=== PATIENT | female | born 1965 | race American Indian/Alaskan Native ===

== ENCOUNTER 2021-02-28 21:40 | Emergency (ER) | payer SELFPAY ==
[2021-02-28 23:22] VITALS: BP 131/83
[2021-02-28] MEDS ORDERED: oxyCODONE /ACETAMINOPHEN 5-325MG TAB PO ONE (23:55)
[2021-02-28] MEDS ORDERED: dexAMETHasone 20 MG/5 ML VIAL IM ONE (23:55)
[2021-02-28] MEDS ORDERED: ONDANSETRON 4 MG ODT TAB PO ONE (23:55)
[2021-02-28] MEDS ORDERED: KETOROLAC 60 MG/2 ML INJ IM ONE (23:55)
--- NOTE | 2021-03-01 00:01 | Emergency Department Report ---
ED Back Pain/Injury HPI - General Chief Complaint: Extremity Problem,Nontraumatic Stated Complaint: PAIN IN RIGHT BACK AND HIP Source: patient Limitations: No Limitations - History of Present Illness Initial Comments: Patient is a 55-year-old -[place] female with a history of hypertension, glaucoma, chronic lumbar disc disease, chronic back pain with sciatica and chronic osteoarthritis s/p left TKR who presents to the ED with acute exacerbation of her chronic low back pain and sciatica that began 3 days ago. Patient states that the pain got worse such that she is unable to bear weight on her lower extremities because of worsening radiating low back pain to her lower extremities. Patient states that she has been taking [id number] pain medications with no relief. Patient also states that she tried to ambulate using crutches but has not been able to walk because of worsening low back pain which is constant, persistent, sharp and radiating to the lower extremities bilaterally. Patient denies dysuria, urinary frequency and urgency, fall, heavy lifting, traumatic injury, urinary retention, bowel incontinence, saddle paresthesia, chest pain or shortness of breath, abdominal pain, nausea and vomiting, fever and chills. MD Complaint: back pain (Low back pain that radiates to the lower extremities bilaterally) -: Sudden, days(s) (3) Similar Symptoms Previously: Yes (Chronic low back pain with sciatica) Place: home Radiation: buttocks, left leg, right leg Severity: severe Severity scale (0 -10): 9 Quality: sharp, aching Consistency: constant Improves With: none Worsens With: movement, walking Context: other (Chronic degenerative lumbar disc disease) Associated Symptoms: denies other symptoms, difficulty walking (Due to pain). denies: confusion, weakness, chest pain, cough, difficulty urinating, diaphoresis, incontinence, fever/chills, constipation, headaches, abdominal pain, loss of appetite, malaise, nausea/vomiting, rash, seizure, shortness of breath, syncope, other Treatments Prior to Arrival: NSAIDS, acetaminophen - Related Data Previous Rx's Medication Instructions Recorded Last Taken Type Gabapentin 300 mg PO Q12H PRN #30 capsule 03/01/21 Unknown Rx Ketoprofen 75 mg PO Q8H PRN #30 capsule 03/01/21 Unknown Rx carisoprodoL [Soma] 350 mg PO Q8H PRN #30 tablet 03/01/21 Unknown Rx predniSONE [Deltasone] 60 mg PO QDAY #15 tab 03/01/21 Unknown Rx traMADoL [Ultram] 50 mg PO Q6HR PRN #12 tablet 03/01/21 Unknown Rx Allergies Allergy/AdvReac Type Severity Reaction Status Date / Time No Known Allergies Allergy Unverified 02/28/21 23:14 ED Review of Systems ROS: Stated complaint: PAIN IN RIGHT BACK AND HIP Other details as noted in HPI Constitutional: denies: chills, fever Eyes: denies: eye pain, eye discharge, vision change ENT: denies: ear pain, throat pain Respiratory: denies: cough, shortness of breath, wheezing Cardiovascular: denies: chest pain, palpitations Endocrine: no symptoms reported Gastrointestinal: denies: abdominal pain, nausea, vomiting, diarrhea Genitourinary: denies: urgency, dysuria, discharge Musculoskeletal: back pain (Low back pain), arthralgia (Bilateral lower extremity pain with tingling), myalgia. denies: joint swelling Skin: denies: rash, lesions Neurological: denies: headache, weakness, paresthesias Psychiatric: denies: anxiety, depression Hematological/Lymphatic: denies: easy bleeding, easy bruising ED Past Medical Hx - Past Medical History Previous Medical History?: Yes Hx Hypertension: Yes Hx Heart Attack/AMI: ("enlarged heart") Hx Arthritis: Yes (osteoporosis) Additional medical history: glaucoma - Surgical History Additional Surgical History: 2 L knee replacements - Social History Smoking Status: Never Smoker Substance Use Type: Marijuana - Medications Home Medications: Home Medications Medication Instructions Recorded Confirmed Last Taken Type Gabapentin 300 mg PO Q12H PRN #30 capsule 03/01/21 Unknown Rx Ketoprofen 75 mg PO Q8H PRN #30 capsule 03/01/21 Unknown Rx carisoprodoL [Soma] 350 mg PO Q8H PRN #30 tablet 03/01/21 Unknown Rx predniSONE [Deltasone] 60 mg PO QDAY #15 tab 03/01/21 Unknown Rx traMADoL [Ultram] 50 mg PO Q6HR PRN #12 tablet 03/01/21 Unknown Rx ED Physical Exam - General Limitations: No Limitations General appearance: alert, in no apparent distress - Head Head exam: Present: atraumatic, normocephalic, normal inspection - Eye Eye exam: Present: normal appearance, PERRL, EOMI Pupils: Present: normal accommodation - ENT ENT exam: Present: normal exam, normal orophraynx, mucous membranes moist, TM's normal bilaterally, normal external ear exam - Neck Neck exam: Present: normal inspection, full ROM. Absent: tenderness - Respiratory Respiratory exam: Present: normal lung sounds bilaterally. Absent: respiratory distress, wheezes, rales, rhonchi, stridor, chest wall tenderness, accessory muscle use, prolonged expiratory - Cardiovascular Cardiovascular Exam: Present: regular rate, normal rhythm, normal heart sounds. Absent: systolic murmur, diastolic murmur, rubs, gallop - GI/Abdominal GI/Abdominal exam: Present: soft, normal bowel sounds. Absent: tenderness, guarding, rebound, hyperactive bowel sounds, hypoactive bowel sounds, organomegaly - Extremities Exam Extremities exam: Present: normal inspection, full ROM, normal capillary refill - Back Exam Back exam: Present: normal inspection, tenderness (Palpable). Absent: full ROM (Limited range of motion due to pain) - Neurological Exam Neurological exam: Present: alert, oriented X3 - Psychiatric Psychiatric exam: Present: normal affect, normal mood - Skin Skin exam: Present: warm, dry, intact, normal color. Absent: rash ED Course Vital Signs 02/28/21 23:15 Temperature 98.8 F Pulse Rate 77 Respiratory 18 Rate Blood Pressure 131/83 O2 Sat by Pulse 99 Oximetry ED Medical Decision Making - Medical Decision Making This is a 55-year-old -[place] female with a history of hypertension, glaucoma, chronic lumbar disc disease, chronic back pain with sciatica and chronic osteoarthritis s/p left TKR who presents to the ED with acute exacerbation of her chronic low back pain and sciatica that began 3 days ago. Patient states that the pain got worse such that she is unable to bear weight on her lower extremities because of worsening radiating low back pain to her lower extremities. Patient states that she has been taking [id number] pain medications with no relief. Patient also states that she tried to ambulate using crutches but has not been able to walk because of worsening low back pain which is constant, persistent, sharp and radiating to the lower extremities bilaterally. In the ED, patient is alert and oriented x3 and is not in any distress. Patient is hemodynamically stable but appears to be in significant pain. Patient was treated for pain in the ED and on reevaluation, patient's pain is well controlled medications. Patient was therefore discharged home on pain medications and advised to follow-up with her primary care physician in 5 to 7 days for reevaluation or return to the ED immediately if symptoms get worse. - Differential Diagnosis chronic pain; sciatica; lumbar disc disease; chronic back pain Critical care attestation.: If time is entered above; I have spent that time in minutes in the direct care of this critically ill patient, excluding procedure time. ED Disposition Clinical Impression: Spasm of muscle of lower back Chronic low back pain with sciatica Qualifiers: Back pain laterality: bilateral Sciatica laterality: bilateral sciatica Qualified Code(s): M54.42 - Lumbago with sciatica, left side; M54.41 - Lumbago with sciatica, right side; G89.29 - Other chronic pain Disposition: TO HOME OR SELFCARE Is pt being admited?: No Does the pt Need Aspirin: No Condition: Stable Instructions: Chronic Back Pain, [id number], Muscle Cramps and Spasms, [id number], Sciatica, [id number] Additional Instructions: Take medication with food, drink plenty of fluids and follow-up with your primary care physician in 7 to 10 days for reevaluation. Return to the ED immediately if symptoms get worse. Prescriptions: predniSONE [Deltasone] 60 mg PO QDAY #15 tab Gabapentin 300 mg PO Q12H PRN #30 capsule PRN Reason: Neuropathy Ketoprofen 75 mg PO Q8H PRN #30 capsule PRN Reason: Pain , Severe (7-10) carisoprodoL [Soma] 350 mg PO Q8H PRN #30 tablet PRN Reason: Muscle Spasm traMADoL [Ultram] 50 mg PO Q6HR PRN #12 tablet PRN Reason: Pain Referrals: [facility] [Provider Group] - 3-5 Days Time of Disposition: 00:02 Print Language: IRISH
== END 2021-03-01 00:48 | disposition home or self-care (01) ==
LOC: ED 21:40
DX: M54.42 Lumbago with sciatica, left side (principal); M62.830 Muscle spasm of back; I25.2 Old myocardial infarction; F12.90 Cannabis use, unspecified, uncomplicated; I10 Essential (primary) hypertension; M19.90 Unspecified osteoarthritis, unspecified site; Z79.899 Other long term (current) drug therapy; Z98.890 Other specified postprocedural states
CPT/HCPCS: 96372; 99282; J1100; J1885; Q0162

== ENCOUNTER 2021-05-22 13:49 | Emergency (ER) | payer SELFPAY ==
[2021-05-22 14:12] VITALS: BP 156/96
[2021-05-22] MEDS ORDERED: oxyCODONE /ACETAMINOPHEN 5-325MG TAB PO ONE (15:09)
[2021-05-22] MEDS ORDERED: dexAMETHasone 20 MG/5 ML VIAL IM ONE (15:09)
[2021-05-22] MEDS ORDERED: KETOROLAC 30 MG/1 ML INJ IM ONE (15:09)
--- NOTE | 2021-05-22 15:56 | Emergency Department Report ---
ED Extremity Problem HPI - General Chief complaint: Pain General Stated complaint: ARTHRITIS Time Seen by Provider: 05/22/21 15:08 Source: patient Mode of arrival: Wheelchair Limitations: Physical Limitation - History of Present Illness Initial comments: 56-year-old female with a 3-day history of left elbow and left ankle pain and swelling. Patient reports she does have a history of arthritis. Patient's states that the pain is so severe that the lightest touch causes increased pain. Patient does admit that she has been eating more meats and drinking wine. She is not sure if she has gout. She does not have a primary care provider at this time. She denies any fever no injury to her joints. MD Complaint: joint swelling, joint paint Onset/Timin -: days(s) Location: left, elbow, other (Ankle) History of Same: No -: Yes arthralgia Severity scale (0 -10): 10 Quality: stabbing, sharp Consistency: constant Improves with: elevation Worsens with: weight bearing, walking, palpation Associated Symptoms: denies other symptoms - Related Data Previous Rx's Medication Instructions Recorded Last Taken Type Gabapentin 300 mg PO Q12H PRN #30 capsule 03/01/21 Unknown Rx carisoprodoL [Soma] 350 mg PO Q8H PRN #30 tablet 03/01/21 Unknown Rx Ketoprofen 75 mg PO Q8H PRN #30 capsule 05/22/21 Unknown Rx predniSONE [Deltasone] 60 mg PO QDAY #15 tab 05/22/21 Unknown Rx traMADoL [Ultram 50 MG tab] 50 mg PO Q6HR PRN #12 tablet 05/22/21 Unknown Rx Allergies Allergy/AdvReac Type Severity Reaction Status Date / Time No Known Allergies Allergy Unverified 02/28/21 23:14 ED Review of Systems ROS: Stated complaint: ARTHRITIS Other details as noted in HPI Comment: All other systems reviewed and negative ED Past Medical Hx - Past Medical History Previous Medical History?: Yes Hx Hypertension: Yes Hx Heart Attack/AMI: Yes ("enlarged heart") Hx Arthritis: Yes (osteoporosis) Additional medical history: glaucoma - Surgical History Past Surgical History?: Yes Additional Surgical History: 2 L knee replacements - Social History Smoking Status: Never Smoker Substance Use Type: Marijuana - Medications Home Medications: Home Medications Medication Instructions Recorded Confirmed Last Taken Type Gabapentin 300 mg PO Q12H PRN #30 capsule 03/01/21 Unknown Rx carisoprodoL [Soma] 350 mg PO Q8H PRN #30 tablet 03/01/21 Unknown Rx Ketoprofen 75 mg PO Q8H PRN #30 capsule 05/22/21 Unknown Rx predniSONE [Deltasone] 60 mg PO QDAY #15 tab 05/22/21 Unknown Rx traMADoL [Ultram 50 MG tab] 50 mg PO Q6HR PRN #12 tablet 05/22/21 Unknown Rx ED Physical Exam - General Limitations: Physical Limitation General appearance: alert, in no apparent distress - Head Head exam: Present: atraumatic, normocephalic - Eye Eye exam: Present: normal appearance - ENT ENT exam: Present: mucous membranes moist, normal external ear exam - Neck Neck exam: Present: normal inspection, full ROM - Respiratory Respiratory exam: Absent: respiratory distress, accessory muscle use - Cardiovascular Cardiovascular Exam: Present: regular rate - Expanded Lower Extremity Exam Left Upper Leg exam: Present: normal inspection, full ROM Knee exam: Present: normal inspection, full ROM Lower Leg exam: Present: normal inspection, full ROM Ankle exam: Present: tenderness, swelling Neuro vascular tendon exam: Present: no vascular compromise Gait: Positive: antalgic - Back Exam Back exam: Present: normal inspection - Neurological Exam Neurological exam: Present: alert, oriented X3 - Psychiatric Psychiatric exam: Present: normal affect, normal mood - Skin Skin exam: Present: warm, dry, intact, normal color. Absent: rash ED Course Vital Signs 05/22/21 05/22/21 05/22/21 14:11 16:13 16:14 Temperature 99.2 F Pulse Rate 87 Respiratory 20 20 20 Rate Blood Pressure 156/96 O2 Sat by Pulse 99 Oximetry ED Medical Decision Making - Medical Decision Making 56-year-old female with a 3-day history of left elbow and left ankle pain and swelling. Patient reports she does have a history of arthritis. Patient's states that the pain is so severe that the lightest touch causes increased pain. Patient does admit that she has been eating more meats and drinking wine. She is not sure if she has gout. She does not have a primary care provider at this time. She denies any fever no injury to her joints. Concern for gout. Ordered Toradol injection dexamethasone injection and Percocet. Discussed with patient gout symptoms and what to avoid. Critical care attestation.: If time is entered above; I have spent that time in minutes in the direct care of this critically ill patient, excluding procedure time. ED Disposition Clinical Impression: Gout Disposition: 01 HOME / SELF CARE / HOMELESS Is pt being admited?: No Does the pt Need Aspirin: No Condition: Stable Instructions: Low-Purine Eating Plan Additional Instructions: Please take pain medications and steroid as prescribed. Is very important you follow-up with a primary care provider. Increase your water intake and advance your diet as tolerated. Be sure to eat when taking medication. Prescriptions: predniSONE [Deltasone] 60 mg PO QDAY #15 tab Ketoprofen 75 mg PO Q8H PRN #30 capsule PRN Reason: Pain , Severe (7-10) traMADoL [Ultram 50 MG tab] 50 mg PO Q6HR PRN #12 tablet PRN Reason: Pain Referrals: ELENA BARON MD [Primary Care Provider] - 3-5 Days Forms: Work/School Release Form(ED) Time of Disposition: 16:06
== END 2021-05-22 17:00 | disposition home or self-care (01) ==
LOC: ED 13:49
DX: M10.9 Gout, unspecified (principal); I10 Essential (primary) hypertension; F12.90 Cannabis use, unspecified, uncomplicated
CPT/HCPCS: 96372; 99282; J1100; J1885